=== PATIENT | female | born 1975 | race Caucasian/White ===

== ENCOUNTER → 2022-01-25 | Outpatient (CLI) | payer BC ==
[2022-01-26 17:11] LABS: HPV 16 Negative (Negative); HPV 18 Negative (Negative); HPV OTHER HR TYPES Negative (Negative)
== END | disposition home or self-care (01) ==
LOC: LAB SHORT 15:17
PROVIDERS: Advanced Practice Midwife
DX: Z01.419 Encounter for gynecological examination (general) (routine) without abnormal findings (principal)
CPT/HCPCS: 87624; G0123

== ENCOUNTER → 2023-02-01 | Outpatient (CLI) | payer BC ==
[2023-02-03 17:08] LABS: HPV 16 Negative (Negative); HPV 18 Negative (Negative); HPV OTHER HR TYPES Negative (Negative)
== END | disposition home or self-care (01) ==
LOC: LAB 14:18 → LAB SHORT 14:18
PROVIDERS: Advanced Practice Midwife
DX: Z01.419 Encounter for gynecological examination (general) (routine) without abnormal findings (principal)
CPT/HCPCS: 87624; G0145

== ENCOUNTER → 2024-11-01 | Outpatient (CLI) | payer BC | END | disposition home or self-care (01) | LOC: LAB 15:51 → LAB SHORT 15:51 | DX: E66.813 Obesity, class 3 (principal); E78.49 Other hyperlipidemia; R20.2 Paresthesia of skin; R73.09 Other abnormal glucose; R74.01 Elevation of levels of liver transaminase levels; R79.0 Abnormal level of blood mineral; Z68.41 Body mass index [BMI] 40.0-44.9, adult | CPT/HCPCS: 85651 ==